=== PATIENT | male | born 1985 | race Caucasian/White ===

== ENCOUNTER 2018-07-06 18:34 | Emergency (ER) | payer OTHER ==
[~2018-07-06] VITALS: Ht 172.7 cm; Wt 88.4 kg
[2018-07-06 18:37] VITALS: BP 120/79
[2018-07-06] MEDS ORDERED: KETOROLAC 30 MG/1 ML ONE (19:20)
[2018-07-06] MEDS ORDERED: HYDROcodone/APAP 5/325 TABLET ONE (19:21)
[2018-07-06] MEDS ORDERED: METHOCARBAMOL 750 MG TABLET ONE (19:21)
[2018-07-06] MEDS ORDERED: HYDROcodone/APAP 5/325 TABLET PO ONE (19:30)
[2018-07-06] MEDS ORDERED: METHOCARBAMOL 750 MG TABLET PO ONE (19:30)
[2018-07-06] MEDS ORDERED: KETOROLAC 30 MG/1 ML IM ONE (19:30)
== END 2018-07-06 20:04 | disposition home or self-care (01) ==
LOC: ED 20:00
DX: S39.012A Strain of muscle, fascia and tendon of lower back, initial encounter (principal); M46.1 Sacroiliitis, not elsewhere classified; X50.1XXA Overexertion from prolonged static or awkward postures, initial encounter; Y93.89 Activity, other specified; Y92.89 Other specified places as the place of occurrence of the external cause; Y99.8 Other external cause status
CPT/HCPCS: 72110; 96372; 99283; J1885

== ENCOUNTER → 2019-07-16 | Outpatient (CLI) | payer OTHER | END | disposition home or self-care (01) | LOC: CFH 12:15 | PROVIDERS: ATTEND Family Medicine | DX: M54.5 Low back pain (principal); M79.89 Other specified soft tissue disorders | CPT/HCPCS: 72114; 76881 ==